=== PATIENT | female | born 1990 | race Caucasian/White ===

== ENCOUNTER → 2019-11-21 | Outpatient (CLI) | payer MEDICAID ==
[~2019-11-21] MED LIST: ACHD5005 PO; BENZ56AE TP; CODE-54 PO; DCS100C PO; IBP600T1 PO; IBUP-1773 PO; PNV1TABL67 PO
--- NOTE | 2019-11-21 17:27 | Diagnostic Imaging Report ---
INDICATION: Cough and shortness of breath PA and lateral chest obtained at 4:02 hours p.m. Heart and mediastinal silhouette are normal in appearance. Lungs are clear. There is no pneumothorax or pleural fluid. IMPRESSION: Negative chest. Dictated by: Dictated on workstation # [id number]
== END ==
LOC: RAD FS 15:02
PROVIDERS: ATTEND Emergency Medicine
DX: R05 Cough (principal); R06.02 Shortness of breath
CPT/HCPCS: 71046

== ENCOUNTER 2021-01-06 21:25 | Emergency (ER) | payer MEDICAID ==
[2021-01-06] MEDS ORDERED: NS IV 1000 ML 1,000 ML IV STA (21:50)
[2021-01-06] MEDS ORDERED: KETOROLAC 30 MG/ML VIAL IVP STA (21:50)
[2021-01-06 21:59] LABS: EOSINOPHILS % (AUTO) 1 % (0-10); HEMATOCRIT 36 % (35-52); HEMOGLOBIN 12.2 g/dL (11.5-16.0); LYMPHOCYTES % (AUTO) 31 % (12-44); MEAN CORPUSCULAR HEMOGLOBIN 31 pg (25-34); MEAN CORPUSCULAR HGB CONC 34 g/dL (32-36); MEAN CORPUSCULAR VOLUME 91 fL (80-99); MEAN PLATELET VOLUME 9.9 fL (9.0-12.2); MONOCYTES % (AUTO) 10 % (0-12); NEUTROPHILS % (AUTO) 58 % (42-75); PLATELET COUNT 212 10^3/uL (130-400); WHITE BLOOD COUNT 7.6 10^3/uL (4.3-11.0)
[2021-01-06 22:00] LABS: BASOPHILS % (AUTO) 1 % (0-10); EOSINOPHILS # (AUTO) 0.1 10^3/uL (0.0-0.3); LYMPHOCYTES # (AUTO) 2.3 X 10^3 (1.0-4.0); MONOCYTES # (AUTO) 0.7 X 10^3 (0.0-1.0); NEUTROPHILS # (AUTO) 4.4 X 10^3 (1.8-7.8)
[2021-01-06] MEDS ORDERED: HOLD METFORMIN - RECEIVED CONTRAST 20 ML VIAL IV SCH (22:00)
[2021-01-06] MEDS ORDERED: NS 100 ML (IVPB) BAG IV ONE (22:00)
[2021-01-06] MEDS ORDERED: IOHEXOL 350 MG/ML 100 ML (OMNIPAQUE 350) VIAL IV ONE (22:00)
--- NOTE | 2021-01-06 22:08 | ED General ---
General Chief Complaint: General Problems/Pain Stated Complaint: LT LEG SWOLLEN/PAINFUL,CP,SOA Nursing Triage Note: Pt complaining of left lower leg pain and swelling that started yesterday and progressed today. Pt states she started feeling a little short of breath and having chest pain this evening. Source of Information: Patient History of Present Illness Date Seen by Provider: Jan 06, 2021 Time Seen by Provider: 21:29 Initial Comments 30 yo female presents with complaint of left leg pain and mild redness since yesterday. She started having sharp pains in chest that last for a few seconds then go away. She also was complaining of shortness of breath this evening. The chest pains and shortness of breath all started today. She denies having symptoms like that before. She has had some redness and swelling in her legs previously but usually after rest and elevation goes away. She denies any trauma to her leg. She denies any history of heart disease, asthma, COPD, pneumonia. She has a history of IV drug abuse with methamphetamines and used last yesterday. She states she does not use a fresh needle every time she injects. She denies using her feet or legs for injections. No fever, chills, nausea, vomiting. Timing/Duration: 1 Day Severity: Moderate Modifying Factors: worse with Movement Associated Systoms: Chest Pain (sharp pains in chest); No Cough, No Diaphoresis, No Fever/Chills, No Headaches, No Loss of Appetite, No Malaise, No Nausea/Vomiting, No Rash, No Seizure; Shortness of Air; No Syncope, No Weakness Allergies and Home Medications Allergies Coded Allergies: No Known Drug Allergies (Unverified , 05/09/09) Patient Home Medication List Home Medication List Reviewed: Yes Acetaminophen/Codeine (Tylenol W/Codeine #3 Tablet) 1 Tab Tablet, 1 TAB PO Q6H Prescribed by: KEAGAN HERNANDEZ on 05/04/14 0825 Benzocaine/Menthol (Dermoplast [place]) 56 Ml Aerosol, 56 ML TP UD PRN for PAIN Prescribed by: KEAGAN HERNANDEZ on 05/04/14 08 Docusate Sodium (Colace) 100 Mg Cap, 100 MG PO BID Prescribed by: RONI SMART on 05/05/14 0930 Hydrocodone Bit/Acetaminophen (Lortab 5 Mg) 1 Tab Tab, 1-2 TAB PO Q4H PRN for PAIN Prescribed by: RONI SMART on 05/05/14 09 Ibuprofen (Motrin Tablet) 600 Mg Tab, 600 MG PO Q6H Prescribed by: KEAGAN HERNANDEZ on 05/04/14 08 Ibuprofen (Ibuprofen) 600 Mg Tablet, 600 MG PO Q6H Prescribed by: RONI SMART on 05/05/14 09 Pnv with Ca,No.72/Iron/FA (Pnv Plus Multivit Tab) 1 Ea Tab, 1 EA PO DAILY@0700 Prescribed by: KEAGAN HERNANDEZ on 05/04/14 0825 Review of Systems Review of Systems Constitutional: No chills, No fever EENTM: no symptoms reported Respiratory: see HPI Cardiovascular: see HPI Gastrointestinal: no symptoms reported Genitourinary: no symptoms reported Musculoskeletal: see HPI, other (pain left lower leg and calf) Skin: change in color (mild erythema to left lower leg) Psychiatric/Neurological: Denies Headache, Denies Numbness, Denies Paresthesia Hematologic/Lymphatic: Denies Blood Clots (denies hx of DVT or PE) Past Wzukjix-Rppkmf-Fzmmsk Hx Patient Social History Tobacco Use?: Yes Tobacco type used: Cigarettes Smoking Status: Current Everyday Smoker Use of E-Cig and/or Vaping dev: No Substance use?: Yes Substance type: Methamphetamine Alcohol Use?: No Pt feels they are or have been: No Immunizations Up To Date Tetanus Booster (TDap): Unknown Past Medical History Respiratory: No Cardiac: No Neurological: No Reproductive Disorders: No Female Reproductive Disorders: Denies Sexually Transmitted Disease: Yes (HPV) HIV/AIDS: No UTI-Chronic Gastrointestinal: No Musculoskeletal: No Endocrine: No HEENT: No Loss of Vision: Denies Hearing Impairment: Denies Psychosocial: No Adverse Reaction/Blood Tranf: No Family Medical History Cardiovascular disease 19 FATHER Completed stroke 19 MOTHER FH: multiple sclerosis 19 MOTHER FH: throat cancer 19 MOTHER Hypercholesterolemia 19 FATHER Hypertension 19 FATHER Myocardial infarction 19 FATHER Osteoporosis 19 MOTHER Respiratory disorder 19 FATHER (COPD) No Family History of: AIDS Abdominal aortic aneurysm Terrell's disease Alcoholism Alzheimer's disease Aphasia Arthritis Asthma Cancer of mouth Cataracts Colon cancer Congenital disease Congenital heart disease Coronary thrombosis Cystic fibrosis Deafness or hearing loss Dementia Diabetes mellitus Drug abuse Dysphasia Fibrocystic disease of breast Gastroenteritis Glaucoma Headache disorder Infertility Kidney disease Neoplasm Not obtainable due to adoption Parkinson's disease Prostate cancer Psychosocial problem Seizure disorder Severe allergy Thyroid disease Tuberculosis Visual disorder Physical Exam Vital Signs Vital Signs - First Documented 01/06/21 21:28 Temp 36.7 Pulse 86 Resp 18 B/P (MAP) 115/68 (84) Pulse Ox 100 O2 Delivery Room Air Capillary Refill : Less Than 3 Seconds Height, Weight, BMI Height: 5'7.00" Weight: 158lbs. oz. 71.775771mc; BMI Method: General Appearance: No Apparent Distress, WD/WN HEENT: PERRL/EOMI, Pharynx Normal Neck: Full Range of Motion, Normal Inspection, Non Tender, Supple Respiratory: Chest Non Tender, Lungs Clear, Normal Breath Sounds, No Accessory Muscle Use, No Respiratory Distress Cardiovascular: Regular Rate, Rhythm, Normal Peripheral Pulses Gastrointestinal: Normal Bowel Sounds, No Pulsatile Mass, Non Tender, Soft Rectal: Deferred Extremity: Normal Capillary Refill, No Pedal Edema, Inflammation (erythema and tenderness to palpation left lower leg and calf) Neurologic/Psychiatric: Alert, Oriented x3, circulating process inspector II-XII Norm as Tested Skin: Warm/Dry, Erythema (mild increased erythema to left lower anaya) Progress/Results/Core Measures Suspected Sepsis SIRS Temperature: Pulse: 86 Respiratory Rate: 18 Laboratory Tests 01/06/21 21:48: White Blood Count 7.6 Blood Pressure 115 /68 Mean: 84 Laboratory Tests 01/06/21 21:48: Creatinine 0.67, INR Comment 1.0, Platelet Count 212, Total Bilirubin 0.4 Results/Orders Lab Results Laboratory Tests Test 01/06/21 21:48 Range/Units White Blood Count 7.6 4.3-11.0 10^3/uL Red Blood Count 3.94 3.80-5.11 10^6/uL Hemoglobin 12.2 11.5-16.0 g/dL Hematocrit 36 35-52 % Mean Corpuscular Volume 91 80-99 fL Mean Corpuscular Hemoglobin 31 25-34 pg Mean Corpuscular Hemoglobin Concent 34 32-36 g/dL Red Cell Distribution Width 13.2 10.0-14.5 % Platelet Count 212 130-400 10^3/uL Mean Platelet Volume 9.9 9.0-12.2 fL Immature Granulocyte % (Auto) 0 % Neutrophils (%) (Auto) 58 42-75 % Lymphocytes (%) (Auto) 31 12-44 % Monocytes (%) (Auto) 10 0-12 % Eosinophils (%) (Auto) 1 0-10 % Basophils (%) (Auto) 1 0-10 % Neutrophils # (Auto) 4.4 1.8-7.8 X 10^3 Lymphocytes # (Auto) 2.3 1.0-4.0 X 10^3 Monocytes # (Auto) 0.7 0.0-1.0 X 10^3 Eosinophils # (Auto) 0.1 0.0-0.3 10^3/uL Basophils # (Auto) 0.0 0.0-0.1 10^3/uL Immature Granulocyte # (Auto) 0.0 0.0-0.1 10^3/uL Prothrombin Time 13.1 12.2-14.7 SEC INR Comment 1.0 0.8-1.4 Activated Partial Thromboplast Time 30 24-35 SEC D-Dimer 1.95 H 0.00-0.49 UG/ML Sodium Level 141 135-145 MMOL/L Potassium Level 4.1 3.6-5.0 MMOL/L Chloride Level 106 98-107 MMOL/L Carbon Dioxide Level 25 21-32 MMOL/L Anion Gap 10 5-14 MMOL/L Blood Urea Nitrogen 19 H 7-18 MG/DL Creatinine 0.67 0.60-1.30 MG/DL Estimat Glomerular Filtration Rate 103 BUN/Creatinine Ratio 28 Glucose Level 99 70-105 MG/DL Calcium Level 8.5 8.5-10.1 MG/DL Corrected Calcium 8.6 8.5-10.1 MG/DL Magnesium Level 1.9 1.6-2.4 MG/DL Total Bilirubin 0.4 0.1-1.0 MG/DL Aspartate Amino Transf (AST/SGOT) 21 5-34 U/L Alanine Aminotransferase (ALT/SGPT) 23 0-55 U/L Alkaline Phosphatase 80 40-136 U/L Troponin I < 0.30 <0.30 NG/ML Pro-B-Type Natriuretic Peptide 47.6 <75.0 PG/ML Total Protein 6.6 6.4-8.2 GM/DL Albumin 3.9 3.2-4.5 GM/DL Lipase 28 8-78 U/L My Orders Orders - PATRICA HUSSEIN MD Cbc With Automated Diff (01/06/21 21:50) Magnesium (01/06/21 21:50) Ekg Tracing (01/06/21 21:50) Comprehensive Metabolic Panel (01/06/21 21:50) Protime With Inr (01/06/21 21:50) Partial Thromboplastin Time (01/06/21 21:50) Monitor-Rhythm Ecg Trace Only (01/06/21 21:50) Ed Iv/Invasive Line Start (01/06/21 21:50) Lipase (01/06/21 21:50) Troponin I Fs (01/06/21 21:50) Probnp Fs (01/06/21 21:50) Fibrin Degradation Products (01/06/21 21:50) Ct Angio Chest W (01/06/21 21:50) Ketorolac Injection (Toradol Injection) (01/06/21 21:50) Ns Iv 1000 Ml (Sodium Chloride 0.9%) (01/06/21 21:50) Iohexol Injection (Omnipaque 350 Mg/Ml 1 (01/06/21 22:00) Received Contrast (Hold Metformin- Contr (01/06/21 22:00) Ns (Ivpb) (Sodium Chloride 0.9% Ivpb Bag (01/06/21 22:00) Enoxaparin Injection (Lovenox Injection) (01/06/21 22:51) Medications Given in ED Current Medications Medications Dose Ordered Sig/Gary Route Start Time Stop Time Status Last Admin Dose Admin Iohexol 100 ml ONCE ONCE IV 01/06/21 22:00 01/06/21 22:13 DC 01/06/21 22:30 100 ML Sodium Chloride 100 ml ONCE ONCE IV 01/06/21 22:00 01/06/21 22:13 DC 01/06/21 22:30 80 ML Vital Signs/I&O 01/06/21 01/06/21 21:28 22:59 Temp 36.7 Pulse 86 79 Resp 18 16 B/P (MAP) 115/68 (84) 97/67 Pulse Ox 100 100 O2 Delivery Room Air Room Air 01/07/21 00:00 Intake Total 1000 ml Balance 1000 ml Capillary Refill : Less Than 3 Seconds Blood Pressure Mean: 84 Progress Note #1: Progress Note Order labs with cardiac enzymes. D dimer to screen for DVT/PE. CT scan chest with angiography/contrast to check for PE or pleural effusion or pneumonia, or lung mass. Toradol for pain as pt wants to drive herself home if she is discharged. IVF for hydration. Progress Note #2: Progress Note Labs are stable without acute significant abnormality. However she does have an elevated D-dimer of 1.95. The CT scan of her chest with angiography does not demonstrate any acute PE or dissection. There is no acute pulmonary disease either. With elevated D-dimer she could possibly have a DVT in her leg. Will discuss option of using a Lovenox shot and having her return for outpatient ultrasound tomorrow. ECG Initial ECG Impression Date: Jan 06, 2021 Initial ECG Impression Time: 22:21 Initial ECG Rate: 84 Initial ECG Rhythm: Normal Sinus Initial ECG Comparisson: No Previous ECG Available Comment Normal sinus rhythm with a heart rate of 84 bpm. ND interval of [address] elevation. QT interval 371 ms with a QTc interval 439 ms. No prior tracing available for comparison. Diagnostic Imaging Diagonstic Imaging: CT Plain Films/CT/US/NM/MRI: chest Comments NAME: MEGHAN TRIMBLE [facility] REC#: [id number] PT STATUS: REG ER : 1990 PHYSICIAN: PATRICA HUSSEIN MD ADMIT DATE: 01/06/21/ER FS Draft Date of Exam:01/06/21 CT ANGIO CHEST W PROCEDURE: CT angiography of the chest with contrast. TECHNIQUE: Multiple contiguous axial images were obtained through the chest after uneventful bolus administration of intravenous contrast. 3D reconstructed CTA MIP acquisitions were also performed. Auto Exposure Controls were utilized during the CT exam to meet ALARA standards for radiation dose reduction. INDICATION: Pleuritic chest pain, leg pain. FINDINGS: There are no primary nodules, masses, or infiltrates. There is no pleural or pericardial fluid. There is no pneumothorax. There is no pathologically enlarged adenopathy in the chest. The thoracic aorta is normal in caliber and without evidence of dissection. There are no filling defects seen within the pulmonary arteries to suggest a pulmonary embolism. The visualized intraabdominal structures are unremarkable. The osseous structures are unremarkable. IMPRESSION: No acute abnormality in the chest. Specifically, there is no evidence of a pulmonary embolism or aortic dissection. Dictated on workstation # [id number] Dict: 01/06/212238 Trans: 01/06/212240 [facility] [id number] Interpreted by: JOSE SETH MD Electronically signed by: Departure Impression Primary Impression: Pleuritic chest pain Additional Impressions: Left leg pain Elevated d-dimer IV drug abuse Methamphetamine abuse Disposition: HOME, SELF-CARE Condition: Stable Departure-Patient Inst. Decision time for Depature: 22:51 Referrals: AXEL DACOSTA DO (PCP/Family) Primary Care Physician Patient Instructions: Pleuritic Chest Pain ED, Muscle and Bone Pain (DC) Add. Discharge Instructions: You do not have signs of heart attack or blood clot or pneumonia in your lungs. Your screening test, DDimer, was elevated so there is a chance the pain and redness to your left leg is a blood clot. Call radiology scheduling at [phone] between 7 am and 730 am to schedule Ultrasound of left leg, usually at 9 am or time that is convenient for you and nursery technician. All discharge instructions reviewed with patient and/or family. Voiced understanding. PATRICA HUSSEIN MD Jan 06, 2021 22:08
[2021-01-06 22:19] LABS: ALBUMIN 3.9 GM/DL (3.2-4.5); BILIRUBIN,TOTAL 0.4 MG/DL (0.1-1.0); CALCIUM 8.5 MG/DL (8.5-10.1); CREATININE SERUM 0.67 MG/DL (0.60-1.30); MAGNESIUM 1.9 MG/DL (1.6-2.4); POTASSIUM 4.1 MMOL/L (3.6-5.0); TOTAL PROTEIN 6.6 GM/DL (6.4-8.2)
[2021-01-06 22:24] LABS: FIBRIN DEGRADATION PRODUCTS 1.95 UG/ML (0.00-0.49); PROTHROMBIN TIME PATIENT 13.1 SEC (12.2-14.7)
--- NOTE | 2021-01-06 22:42 | Diagnostic Imaging Report ---
PROCEDURE: CT angiography of the chest with contrast. TECHNIQUE: Multiple contiguous axial images were obtained through the chest after uneventful bolus administration of intravenous contrast. 3D reconstructed CTA MIP acquisitions were also performed. Auto Exposure Controls were utilized during the CT exam to meet ALARA standards for radiation dose reduction. INDICATION: Pleuritic chest pain, leg pain. FINDINGS: There are no primary nodules, masses, or infiltrates. There is no pleural or pericardial fluid. There is no pneumothorax. There is no pathologically enlarged adenopathy in the chest. The thoracic aorta is normal in caliber and without evidence of dissection. There are no filling defects seen within the pulmonary arteries to suggest a pulmonary embolism. The visualized intraabdominal structures are unremarkable. The osseous structures are unremarkable. IMPRESSION: No acute abnormality in the chest. Specifically, there is no evidence of a pulmonary embolism or aortic dissection. Dictated by: Dictated on workstation # [id number]
[2021-01-06] MEDS ORDERED: ENOXAPARIN 60 MG/0.6 ML (LOVENOX) SYR SC STA (22:51)
[2021-01-06 22:59] VITALS: BP 97/67
== END 2021-01-06 23:07 | disposition home or self-care (01) ==
LOC: EDUNIT# 21:25 → ER FS 21:26
DX: R07.81 Pleurodynia (principal); M79.605 Pain in left leg; R79.89 Other specified abnormal findings of blood chemistry; F19.10 Other psychoactive substance abuse, uncomplicated; F15.10 Other stimulant abuse, uncomplicated; F17.210 Nicotine dependence, cigarettes, uncomplicated
CPT/HCPCS: 36415; 71275; 80053; 83690; 83735; 83880; 84484; 85025; 85379; 85610; 85730; 93005; 93041

== ENCOUNTER → 2021-01-09 | Outpatient (CLI) | payer MEDICAID ==
--- NOTE | 2021-01-09 11:53 | Diagnostic Imaging Report ---
PROCEDURE: US left lower extremity venous. TECHNIQUE: Multiple real-time grayscale images were obtained over the left lower extremity in various projections. Additional duplex Doppler and color Doppler images were also obtained. INDICATION: Left leg pain. There is no evidence of left lower extremity DVT. Left lower extremity DVT venous system shows normal compressibility with normal response to augmentation and Valsalva. No fluid collection or mass is detected. IMPRESSION: No evidence of left lower extremity DVT. Dictated by: Dictated on workstation # [id number]
== END ==
LOC: RAD FS 10:49
PROVIDERS: ATTEND Emergency Medicine
DX: M79.605 Pain in left leg (principal); R79.1 Abnormal coagulation profile